=== PATIENT | female | born 1980 | race Caucasian/White ===

== ENCOUNTER 2017-10-21 10:27 | Outpatient (CLI) | payer BC, SELFPAY ==
[2017-10-21 10:32] VITALS: BP 104/67; PULSE 90; RESP 24; TEMP 36.3; O2SAT 100
[2017-10-21] MEDS: Midazolam 2 MG/2 ML VIAL IVP ×2 (11:16→11:25)
[2017-10-21] MEDS: Lactated Ringers 1,000 ML 80 ML IV (11:22)
[2017-10-21 11:26] VITALS: BP 97/71; PULSE 93; RESP 24; O2SAT 100
[2017-10-21] MEDS: Lidocaine 2% Pres-Free 2 ML VIAL IJ (11:35)
--- NOTE | 2017-10-21 11:35 | DI.REPORT_ITS ---
SYMPTOM/DIAGNOSIS: SACROILIAC JOINT DYSFUNCTION PAIN CLINIC: Fluoroscopy Time: 38.2s Fluoroscopy was utilized by Dr. Krishna during the performance of a sacroiliac joint injection. Please refer to the procedure report for complete details.
[2017-10-21] MEDS: Omnipaque 240 MG/ML 50 ML BTL IJ (11:58)
[2017-10-21] MEDS: methylPREDNISolone ACETATE 80 MG/ML VIAL IJ (11:59)
--- NOTE | 2017-12-23 10:08 | PDOC.PAIN_ITS ---
Pain Clinic Procedure Note INTRA-ARTICULAR SI JOINT INJECTION Date of Service: 10/21/2017 Patient: Sanna Peterson Provider: Zaire Krishna DO, MPH COMMENTS: She has been previously evaluated in our clinic Ms. Peterson has been referred to the [facility] for intra-articular SI joint injection. Ms. Peetrson was interviewed and the medical record reviewed. There were no medical, pharmacologic, radiographic or other structural contraindications to attempting fluoroscopically guided intra-articular SI joint injection. Risks and expected side effects as well as potential benefit of the procedure were reviewed with Ms. Peterson, and her voiced concerns were addressed. The printed consent form was signed and witnessed. Standard time-out procedure was performed. Ms. Peterson was placed in the prone position on the fluoroscopy table and automated blood pressure cuff and pulse oximeter applied. The skin entry point for approaching the left sacroiliac joint was identified under the most advantageous fluoroscopic view and marked. Following thorough Chlorhexadine preparation of the skin and draping and 1% lidocaine infiltration of the skin entry point and subcutaneous tissues, a 22 gauge spinal needle was placed under fluoroscopic guidance into the LEFT sacroiliac joint. Intra-articular placement was confirmed by a clear arthrogram resulting from the injection of 0.25ml Omnipaque 240. 1 ml 1% Lidocaine and 80 mg Depomedrol was injected intra- articularily with an initial reproduction of a significant component of the usual pain. The needle was flushed with 0.5 cc of 1% Lidocaine and removed without difficulty. (49 cc of Omnipaque was wasted) Ms. Peterson's vital signs were stable throughout the procedure and were as recorded in the docflowsheet by the nursing staff. If given, dosages of intravenous drugs for anxiolysis and analgesia were documented in MAR. Follow up plans and appointments were discussed with the Ms. Peterson. Post procedure instruction was given as documented in nursing documentation and having met discharge criteria, She was discharged from the [facility]. COMMENTS: No complications. F/U with our office as needed. I personally performed this entire procedure. Zaire Krishna DO, MPH [facility]-subspecialty board certification in Pain Medicine Attending Physician-Pain Management CC: PCP
--- NOTE | 2017-12-23 15:01 | PDOC.PAIN ---
Pain Clinic Procedure Note INTRA-ARTICULAR SI JOINT INJECTION Date of Service: 10/21/2017 Patient: Sanna Peterson Provider: Zaire Krishna DO, MPH COMMENTS: She has been previously evaluated in our clinic Ms. Peterson has been referred to the [facility] for intra-articular SI joint injection. Ms. Peterson was interviewed and the medical record reviewed. There were no medical, pharmacologic, radiographic or other structural contraindications to attempting fluoroscopically guided intra-articular SI joint injection. Risks and expected side effects as well as potential benefit of the procedure were reviewed with Ms. Peterson, and her voiced concerns were addressed. The printed consent form was signed and witnessed. Standard time-out procedure was performed. Ms. Peterson was placed in the prone position on the fluoroscopy table and automated blood pressure cuff and pulse oximeter applied. The skin entry point for approaching the left sacroiliac joint was identified under the most advantageous fluoroscopic view and marked. Following thorough Chlorhexadine preparation of the skin and draping and 1% lidocaine infiltration of the skin entry point and subcutaneous tissues, a 22 gauge spinal needle was placed under fluoroscopic guidance into the LEFT sacroiliac joint. Intra-articular placement was confirmed by a clear arthrogram resulting from the injection of 0.25ml Omnipaque 240. 1 ml 1% Lidocaine and 80 mg Depomedrol was injected intra-articularily with an initial reproduction of a significant component of the usual pain. The needle was flushed with 0.5 cc of 1% Lidocaine and removed without difficulty. (49 cc of Omnipaque was wasted) Ms. Peterson's vital signs were stable throughout the procedure and were as recorded in the docflowsheet by the nursing staff. If given, dosages of intravenous drugs for anxiolysis and analgesia were documented in MAR. Follow up plans and appointments were discussed with the Ms. Peterson. Post procedure instruction was given as documented in nursing documentation and having met discharge criteria, She was discharged from the [facility]. COMMENTS: No complications. F/U with our office as needed. I personally performed this entire procedure. Zaire Krishna DO, MPH [facility]-subspecialty board certification in Pain Medicine Attending Physician-Pain Management CC: PCP
== END 2017-10-21 10:28 ==
PROVIDERS: PCP Internal Medicine; Visit Provider Preventive Medicine Occupational Medicine
DX: M54.5 Low back pain (principal); M53.3 Sacrococcygeal disorders, not elsewhere classified
CPT/HCPCS: 27096; 72200; J1040; J2250; Q9967

== ENCOUNTER 2017-12-23 12:25 | Outpatient (CLI) | payer BC, SELFPAY ==
--- NOTE | 2017-12-23 06:00 | DI.RAD_ITS ---
SYMPTOMS/DIAGNOSIS: FAILED BACK SYNDROME PAIN CLINIC: Fluoroscopy Time: 59 Fluoroscopy was utilized by Dr. Krishna during the performance of a left facet injection. Please refer to the procedure report for complete details.
[2017-12-23 12:36] VITALS: BP 102/74; PULSE 109; RESP 22; TEMP 37; O2SAT 99
--- NOTE | 2017-12-23 13:11 | PDOC.PAIN ---
Pain Clinic Procedure Note Current Active Problems Problem Status Onset Spondylosis of lumbar region without myelopathy or radiculopathy Acute INTRA-ARTICULAR FACET JOINT INJECTION AT LEFT L3-L4, L4-L5, AND L5-S1 ADRIENNE CLEARY has been referred to the [facility] for intra-articular lumbar facet joint injection. COMMENTS: I did review her evaluation by Blake Patient was interviewed and the medical record reviewed. There were no medical, pharmacologic, radiographic or other structural contraindications to attempting fluoroscopically guided intra-articular lumbar facet joint injection. Risks and expected side effects as well as potential benefit of the procedure were reviewed and voiced concerns addressed. The printed consent form was signed and witnessed. Standard time-out procedure was performed. Patient was placed in the prone position on the fluoroscopy table and automated blood pressure cuff and pulse oximeter applied. The skin entry point for approaching left L3-L4, L4-L5, and L5-C9mazgl joints was identified under the most advantageous fluoroscopic view and marked. Following thorough Chlorhexadine preparation of the skin and draping and 1% lidocaine infiltration of the skin entry point and subcutaneous tissues, a 25 gauge spinal needle was placed under fluoroscopic guidance into the left L3-L4, L4-L5, and L5-N4occws joints. Intra-articular placement was confirmed by a clear arthrogram resulting from the injection of 0.25ml Omnipaque 240. .5ml 1% lidocaine and 25mg Depomedrol were injected intra-articularily with an initial reproduction of a significant component of the usual pain. Vital signs were stable throughout the procedure and were as recorded in the docflowsheet by the nursing staff. If given, dosages of intravenous drugs for anxiolysis and analgesia were documented in MAR. Follow up plans and appointments were discussed. Post procedure instruction was given as documented in nursing documentation and having met discharge criteria,was discharged from the [facility]. COMMENTS: This procedure can be completed up to 3 times every 12 months as needed. Zaire Krishna DO, MPH [facility] - Subspecialty Board Certified in Pain Medicine CC: Katherine Castillo
--- NOTE | 2017-12-23 13:15 | PDOC.PAIN_ITS ---
Pain Clinic Procedure Note Current Active Problems Problem Status Onset Spondylosis of lumbar region without myelopathy or radiculopathy Acute INTRA-ARTICULAR FACET JOINT INJECTION AT LEFT L3-L4, L4-L5, AND L5-S1 ADRIENNE CLEARY has been referred to the [facility] for intra- articular lumbar facet joint injection. COMMENTS: I did review her evaluation by Blake Patient was interviewed and the medical record reviewed. There were no medical , pharmacologic, radiographic or other structural contraindications to attempting fluoroscopically guided intra-articular lumbar facet joint injection. Risks and expected side effects as well as potential benefit of the procedure were reviewed and voiced concerns addressed. The printed consent form was signed and witnessed. Standard time-out procedure was performed. Patient was placed in the prone position on the fluoroscopy table and automated blood pressure cuff and pulse oximeter applied. The skin entry point for approaching left L3-L4, L4-L5, and L5-J1jgwst joints was identified under the most advantageous fluoroscopic view and marked. Following thorough Chlorhexadine preparation of the skin and draping and 1% lidocaine infiltration of the skin entry point and subcutaneous tissues, a 25 gauge spinal needle was placed under fluoroscopic guidance into the left L3-L4, L4-L5, and L5-R2wynto joints. Intra-articular placement was confirmed by a clear arthrogram resulting from the injection of 0.25ml Omnipaque 240. .5ml 1% lidocaine and 25mg Depomedrol were injected intra-articularily with an initial reproduction of a significant component of the usual pain. Vital signs were stable throughout the procedure and were as recorded in the docflowsheet by the nursing staff. If given, dosages of intravenous drugs for anxiolysis and analgesia were documented in MAR. Follow up plans and appointments were discussed. Post procedure instruction was given as documented in nursing documentation and having met discharge criteria,was discharged from the [facility]. COMMENTS: This procedure can be completed up to 3 times every 12 months as needed. Zaire Krishna DO, MPH [facility] - Subspecialty Board Certified in Pain Medicine CC: Katherine Castillo
[2017-12-23 13:22] VITALS: BP 97/60; PULSE 100; RESP 19; O2SAT 100
[2017-12-23] MEDS: Omnipaque 240 MG/ML 50 ML BTL IJ (13:24)
[2017-12-23] MEDS: methylPREDNISolone ACETATE 80 MG/ML VIAL IM (13:24)
== END 2017-12-23 12:45 ==
PROVIDERS: PCP Internal Medicine; Visit Provider Preventive Medicine Occupational Medicine
DX: M47.816 Spondylosis without myelopathy or radiculopathy, lumbar region (principal)
CPT/HCPCS: 64493; 64494; 64495; 72100; J1040; Q9967

== ENCOUNTER 2018-05-24 14:19 | Outpatient (CLI) | payer BC, SELFPAY ==
--- NOTE | 2018-05-24 06:00 | DI.RAD_ITS ---
SYMPTOM/DIAGNOSIS: SACROILIAC JOINT DYSFUNCTION, SI JOINT INJECTION C-ARM: Fluoroscopy Time: 36.8 seconds Fluoroscopy was provided for guidance with lumbar spine pain clinic injection. Please see procedure note for details.
[2018-05-24 14:26] VITALS: BP 106/74; PULSE 78; RESP 18; TEMP 36.5; O2SAT 97
--- NOTE | 2018-05-24 14:52 | PDOC.PAIN_ITS ---
Pain Clinic Procedure Note Current Active Problems Problem Status Onset Spondylosis of lumbar region without myelopathy or radiculopathy Acute INTRA-ARTICULAR FACET JOINT INJECTION ADRIENNE CLEARY has been referred to the [facility] for intra- articular lumbar facet joint injection. COMMENTS: She obtained 4 months of pain relief with the last left L3-L4, L4-L5 and L5-S1 facet joint intra-articular injections. 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 Patient was interviewed and the medical record reviewed. There were no medical, pharmacologic, radiographic or other structural contraindications to attempting fluoroscopically guided intra-articular lumbar facet joint injection. Risks and expected side effects as well as potential benefit of the procedure were reviewed and voiced concerns addressed. The printed consent form was signed and witnessed. Standard time-out procedure was performed. Patient was placed in the prone position on the fluoroscopy table and automated blood pressure cuff and pulse oximeter applied. The skin entry point for approaching left facet joints at L3-L4, L4-L5 and L5-S1 was identified under the most advantageous fluoroscopic view and marked. Following thorough Chlorhexadine preparation of the skin and draping and 1% lidocaine infiltration of the skin entry point and subcutaneous tissues, a 22 gauge spinal needle was placed under fluoroscopic guidance into left L3-L4, L4-L5 and L5-S1 facet joints. Intra-articular placement was confirmed by a clear arthrogram resulting from the injection of 0.25ml Omnipaque 240. .5ml 1% lidocaine and 1/3 cc of Depomedrol (80 mg/cc) were injected intra-articularily with an initial reproduction of a significant component of the usual pain. Vital signs were stable throughout the procedure and were as recorded in the do cflowsheet by the nursing staff. If given, dosages of intravenous drugs for anxiolysis and analgesia were documented in MAR. Follow up plans and appointments were discussed. Post procedure instruction was given as documented in nursing documentation and having met discharge criteria,was discharged from the [facility]. COMMENTS: This procedure can be completed up to 3 times per 12 months if it is found to be effective. CC: Katherine Castillo
[2018-05-24] MEDS: Omnipaque 240 MG/ML 50 ML BTL IJ (15:01)
[2018-05-24] MEDS: methylPREDNISolone ACETATE 80 MG/ML VIAL IJ (15:04)
[2018-05-24 15:09] VITALS: BP 111/74; PULSE 94; RESP 17; O2SAT 100
== END 2018-05-24 14:39 ==
PROVIDERS: PCP Internal Medicine; Visit Provider Preventive Medicine Occupational Medicine
DX: M47.816 Spondylosis without myelopathy or radiculopathy, lumbar region (principal)
CPT/HCPCS: 64493; 64494; 64495; 72200; J1040; Q9967

== ENCOUNTER 2018-10-13 10:00 | Outpatient (CLI) | payer BC, SELFPAY ==
--- NOTE | 2018-10-13 06:00 | DI.RAD_ITS ---
SYMPTOM/DIAGNOSIS: LUMBAR RADICULOPATHY C-ARM FLUOROSCOPY LUMBAR SPINE: Fluoroscopy Time: 44.1 sec Fluoroscopy was provided for guidance with lumbar spine Pain Clinic injection. Please see procedure note for details.
[2018-10-13 10:39] VITALS: BP 111/70; PULSE 94; RESP 16; TEMP 36.6; O2SAT 99
[2018-10-13 11:02] VITALS: BP 142/62; PULSE 87; RESP 14; O2SAT 100
[2018-10-13] MEDS: Omnipaque 240 MG/ML 50 ML BTL IJ (11:16)
[2018-10-13] MEDS: Lidocaine 2% Pres-Free 5 ML VIAL IJ (11:17)
[2018-10-13] MEDS: methylPREDNISolone ACETATE 80 MG/ML VIAL IM (11:18)
--- NOTE | 2018-10-13 13:16 | PDOC.PAIN ---
Pain Clinic Procedure Note Current Active Problems Problem Status Onset Spondylosis of lumbar region without myelopathy or radiculopathy INTRA-ARTICULAR FACET JOINT INJECTION ADRIENNE CLEARY has been referred to the [facility] for intra-articular lumbar facet joint injection. COMMENTS: She has had this procedure numerous times in the past with good results. 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 Patient was interviewed and the medical record reviewed. There were no medical, pharmacologic, radiographic or other structural contraindications to attempting fluoroscopically guided intra-articular lumbar facet joint injection. Risks and expected side effects as well as potential benefit of the procedure were reviewed and voiced concerns addressed. The printed consent form was signed and witnessed. Standard time-out procedure was performed. Patient was placed in the prone position on the fluoroscopy table and automated blood pressure cuff and pulse oximeter applied. The skin entry point for approaching left L3-L4, L4-L5, and L5-S1 facet joints at L was identified under the most advantageous fluoroscopic view and marked. Following thorough Chlorhexadine preparation of the skin and draping and 1% lidocaine infiltration of the skin entry point and subcutaneous tissues, a 22 gauge 3.5 spinal needle was placed under fluoroscopic guidance into left L3-L4, L4-L5, and L5-S1 facet joint. Intra-articular placement was confirmed by a clear arthrogram resulting from the injection of 0.25ml Omnipaque 240. .5ml 1% lidocaine and 25 mg Depomedrol were injected intra-articularily at each joint with an initial reproduction of a significant component of the usual pain. Vital signs were stable throughout the procedure and were as recorded in the docflowsheet by the nursing staff. If given, dosages of intravenous drugs for anxiolysis and analgesia were documented in MAR. Follow up plans and appointments were discussed. Post procedure instruction was given as documented in nursing documentation and having met discharge criteria,was discharged from the [facility]. COMMENTS: This procedure can be completed up to 3 times per 12 months if it continues to be effective. CC: Katherine Castillo
== END 2018-10-13 10:20 ==
PROVIDERS: PCP Internal Medicine; Visit Provider Preventive Medicine Occupational Medicine
DX: M47.816 Spondylosis without myelopathy or radiculopathy, lumbar region (principal)
CPT/HCPCS: 64493; 64494; 64495; 72100; J1040; Q9967

== ENCOUNTER 2019-02-07 08:22 | Outpatient (CLI) | payer BC, SELFPAY ==
[2019-02-07 09:12] VITALS: BP 108/69; PULSE 88; RESP 18; TEMP 36.9; O2SAT 100
--- NOTE | 2019-02-07 09:21 | PDOC.PAIN ---
Pain Clinic Procedure Note Procedure Note Procedure Note: Pain Clinic Procedure Note Pre-operative diagnosis: Spondylosis of lumbar region without myelopathy or radiculopathy post-operative diagnosis: same as above Procedure scheduled: left SI joint injection Actual procedure performed: left lumbar intra-articular facet injections INTRA-ARTICULAR FACET JOINT INJECTION ADRIENNE CLEARY has been referred to the [facility] for intra-articular lumbar facet joint injection. COMMENTS: She has had this procedure numerous times in the past with good results. 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 the procedure was booked as a left SI joint injection by mistake, again, confirmed with prior procedure notes and with patient, she has consistently received good pain relief from intra-articular lumbar injection, she has not had pain relief from left SI joint injection. procedure and consent changed appropriately. Patient was interviewed and the medical record reviewed. There were no medical, pharmacologic, radiographic or other structural contraindications to attempting fluoroscopically guided intra-articular lumbar facet joint injection. Risks and expected side effects as well as potential benefit of the procedure were reviewed and voiced concerns addressed. The printed consent form was signed and witnessed. Standard time-out procedure was performed. Patient was placed in the prone position on the fluoroscopy table and automated blood pressure cuff and pulse oximeter applied. The skin entry point for approaching left L3-L4, L4-L5, and L5-S1 facet joints at L was identified under the most advantageous fluoroscopic view and marked. Following thorough Chlorhexadine preparation of the skin and draping and 1% lidocaine infiltration of the skin entry point and subcutaneous tissues, a 22 gauge 3.5 spinal needle was placed under fluoroscopic guidance into left L3-L4, L4-L5, and L5-S1 facet joint. Intra-articular placement was confirmed by a clear arthrogram resulting from the injection of 0.25ml Omnipaque 240. .5ml 1% lidocaine and 25 mg Depomedrol were injected intra-articularily at each joint with an initial reproduction of a significant component of the usual pain. Vital signs were stable throughout the procedure and were as recorded in the docflowsheet by the nursing staff. If given, dosages of intravenous drugs for anxiolysis and analgesia were documented in MAR. of note, given patient's anxiety, she received 2mg of IV versed today. Follow up plans and appointments were discussed. Post procedure instruction was given as documented in nursing documentation and having met discharge criteria,was discharged from the [facility]. COMMENTS: This procedure can be completed up to 3 times per 12 months if it continues to be effective. Please make sure to scheduled intra-articular lumbar facet injections for future. Vitaliy Salmeron MD Pain Management
[2019-02-07] MEDS: Lactated Ringers 1,000 ML 80 ML IV (09:45)
[2019-02-07] MEDS: Midazolam 2 MG/2 ML VIAL IVP ×2 (09:45→09:58)
[2019-02-07 10:03] VITALS: BP 95/55; PULSE 90; RESP 13; O2SAT 100
[2019-02-07 10:06] VITALS: BP 118/73; PULSE 89; RESP 17; O2SAT 100
--- NOTE | 2019-02-07 10:06 | DI.RAD_ITS ---
EXAM: XR PAIN CLINIC SACRIOILIAC 2V CLINICAL HISTORY: Dx: Sacroiliac Joint Dysfunction. TECHNIQUE: Fluoroscopy was provided for the referring physician for guidance with performing injecti on procedure. COMPARISON: No exams were available for comparison FINDINGS: Please see procedure note for details. FLUORO TIME: 44.7 seconds
[2019-02-07] MEDS: Omnipaque 240 MG/ML 50 ML BTL IJ (10:21)
[2019-02-07] MEDS: methylPREDNISolone ACETATE 80 MG/ML VIAL IJ (10:21)
== END 2019-02-07 08:42 ==
PROVIDERS: PCP Internal Medicine; Visit Provider Internal Medicine
DX: M47.816 Spondylosis without myelopathy or radiculopathy, lumbar region (principal)
CPT/HCPCS: 64493; 64494; 64495; 72200; J1040; J2250; Q9967

== ENCOUNTER 2019-08-17 08:03 | Outpatient (CLI) | payer BC, SELFPAY ==
[2019-08-17 08:10] VITALS: BP 86/55; PULSE 93; RESP 20; TEMP 36.1; O2SAT 99
--- NOTE | 2019-08-17 08:57 | PDOC.PAIN_ITS ---
Pain Clinic Procedure Note Procedure Note Procedure Note: INTRA-ARTICULAR FACET JOINT INJECTION ADRIENNE CLEARY has been referred to the [facility] for intra- articular lumbar facet joint injection. COMMENTS: She has had this procedure several times in the past with excellent re sults. Her last one was on 02/07/19 and gave her 4-5 months of relief. DX: Lumbosacral spondylosis without myelopathy Patient was interviewed and the medical record reviewed. There were no medical, pharmacologic, radiographic or other structural contraindications to attempting fluoroscopically guided intra-articular lumbar facet joint injection. Risks and expected side effects as well as potential benefit of the procedure were reviewed and voiced concerns addressed. The printed consent form was signed and witnessed. Standard time-out procedure was performed. Patient was placed in the prone position on the fluoroscopy table and automated blood pressure cuff and pulse oximeter applied. The skin entry point for approaching left L3-L4, L4-L5 and L5-S1 facet joints was identified under the most advantageous fluoroscopic view and marked. Following thorough Chlorhexadine preparation of the skin and draping and 1% lidocaine infiltration of the skin entry point and subcutaneous tissues, a 22 gauge spinal needle was placed under fluoroscopic guidance into left L3-L4, L4-L5 and L5-S9aarck joints. Intra-articular placement was confirmed by a clear arthrogram resulting from the injection of 0.25ml Omnipaque 240. .5ml 1% lidocaine and 20mg Depomedrol were injected intra-articularily with an initial reproduction of a significant component of the usual pain. Vital signs were stable throughout the procedure and were as recorded in the docflowsheet by the nursing staff. If given, dosages of intravenous drugs for anxiolysis and analgesia were documented in MAR. Follow up plans and appointments were discussed. Post procedure instruction was given as documented in nursing documentation and having met discharge criteria,was discharged from the [facility]. COMMENTS: This procedure can be completed up to 3 times per 12 months as needed if it is helpful. Also, she has significant underlying anxiety with this p rocedure. It would be good to add a little extra time for her to settle down in a calm space after the procedure in the future. CC: Katherine Castillo
--- NOTE | 2019-08-17 08:59 | DI.RAD_ITS ---
EXAM: XR PAIN CLINIC LUMBAR SP 2V CLINICAL HISTORY: Dx:Lumbar Spondylosis,FACET JOINT INJECTION TECHNIQUE: Fluoroscopy was provided for the referring physician for guidance with performing injecti on procedure. COMPARISON: No exams were available for comparison FINDINGS: Please see procedure note for details. FLUORO TIME: 40.1 seconds RADIATION DOSE DELIVERED:
[2019-08-17 09:19] VITALS: BP 112/72; PULSE 102; RESP 22; O2SAT 100
[2019-08-17] MEDS: Lidocaine 2% Pres-Free 5 ML VIAL (09:21)
[2019-08-17] MEDS: methylPREDNISolone ACETATE 40 MG/ML VIAL IJ (09:22)
[2019-08-17] MEDS: Omnipaque 240 MG/ML 50 ML BTL (09:22)
== END 2019-08-17 08:23 ==
PROVIDERS: PCP Internal Medicine; Visit Provider Preventive Medicine Occupational Medicine
DX: M47.817 Spondylosis without myelopathy or radiculopathy, lumbosacral region (principal)
CPT/HCPCS: 64493; 64494; 64495; 72100; J1030; Q9967

== ENCOUNTER 2019-12-21 08:43 | Outpatient (CLI) | payer BC, SELFPAY ==
[2019-12-21 09:30] VITALS: BP 105/56; PULSE 90; RESP 17; TEMP 37.1; O2SAT 100
[2019-12-21] MEDS: Omnipaque 240 MG/ML 50 ML BTL IJ (10:22)
[2019-12-21] MEDS: methylPREDNISolone ACETATE 80 MG/ML VIAL IJ (10:22)
--- NOTE | 2019-12-21 10:22 | PDOC.PAIN_ITS ---
Pain Clinic Procedure Note Procedure Note Procedure Note: INTRA-ARTICULAR FACET JOINT INJECTION ADRIENNE CLEARY has been referred to the [facility] for intra- articular lumbar facet joint injection. COMMENTS: She has had this procedure many times with great relief for 4-5 months at a time. This relief has allowed her to keep working. DX: Lumbosacral spondylosis without myelopathy Patient was interviewed and the medical record reviewed. There were no medical, pharmacologic, radiographic or other structural contraindications to attempting fluoroscopically guided intra-articular lumbar facet joint injection. Risks and expected side effects as well as potential benefit of the procedure were reviewed and voiced concerns addressed. The printed consent form was signed and witnessed. Standard time-out procedure was performed. Patient was placed in the prone position on the fluoroscopy table and automated blood pressure cuff and pulse oximeter applied. The skin entry point for approaching right facet joints at L3-L4, L4-L5, and L5-S1 was identified under the most advantageous fluoroscopic view and marked. Following thorough Chlorhexadine preparation of the skin and draping and 1% lidocaine infiltration of the skin entry point and subcutaneous tissues, a 22 gauge spinal needle was placed under fluoroscopic guidance into right L3-L4, L4-L5 and L5-S1 facet joints. Intra-articular placement was confirmed by a clear arthrogram resulting from the injection of 0.25ml Omnipaque 240. .5ml 1% lidocaine and 1/3 cc of Depomedrol (80 mg/cc) were injected intra-articularily with an initial reproduction of a significant component of the usual pain. The needles were flushed with 1 cc of 1% Lidocaine and removed without difficulty. Vital signs were stable throughout the procedure and were as recorded in the docflowsheet by the nursing staff. If given, dosages of intravenous drugs for anxiolysis and analgesia were documented in MAR. Follow up plans and appointments were discussed. Post procedure instruction was given as documented in nursing documentation and having met discharge criteria,was discharged from the [facility]. COMMENTS: This procedure can be completed up to 3 times per 12 months if it continues to be effective. Zaire Krishna DO, MPH Pain Management CC: Katherine Castillo
[2019-12-21 10:23] VITALS: BP 104/57; PULSE 99; RESP 15; O2SAT 100
--- NOTE | 2019-12-21 10:24 | DI.RAD_ITS ---
EXAM: XR PAIN CLINIC LUMBAR SP 2V CLINICAL HISTORY: Dx: Lumbar Spondylosis, facet joint injection TECHNIQUE: Fluoroscopy was provided for the referring physician for guidance with performing injecti on procedure. COMPARISON: No exams were available for comparison FINDINGS: Please see procedure note for details. Fluoro time: 44.2 seconds RADIATION DOSE DELIVERED:
== END 2019-12-21 09:03 ==
PROVIDERS: PCP Internal Medicine; Visit Provider Preventive Medicine Occupational Medicine
DX: M47.816 Spondylosis without myelopathy or radiculopathy, lumbar region (principal)
CPT/HCPCS: 64493; 64494; 64495; 72100; J1040; Q9967

== ENCOUNTER 2020-05-14 10:47 | Outpatient (CLI) | payer BC, SELFPAY ==
[2020-05-14 10:57] VITALS: BP 108/62; PULSE 105; RESP 20; TEMP 37.5; O2SAT 100
--- NOTE | 2020-05-14 11:31 | DI.RAD_ITS ---
EXAM: XR PAIN CLINIC LUMBAR SP 2V CLINICAL HISTORY: DX: Lumbar Spondylosis. TECHNIQUE: Fluoroscopy was provided for the referring physician for guidance with performing injecti on procedure. COMPARISON: No exams were available for comparison FINDINGS: Please see procedure note for details. RADIATION DOSE DELIVERED: 45.6 seconds fluoro time. 4.46 mGy radiation dose.
[2020-05-14 11:33] VITALS: BP 102/60; PULSE 96; RESP 20; O2SAT 100
[2020-05-14] MEDS: methylPREDNISolone ACETATE 80 MG/ML VIAL IJ (11:48)
[2020-05-14] MEDS: Omnipaque 240 MG/ML 50 ML BTL IJ (11:48)
[2020-05-14] MEDS: Lidocaine 2% Pres-Free 5 ML VIAL IJ (11:49)
--- NOTE | 2020-05-14 12:50 | PDOC.PAIN_ITS ---
Pain Clinic Procedure Note Procedure Note Procedure Note: Date of service: May 14, 2020 INTRA-ARTICULAR FACET JOINT INJECTION ADRIENNE CLEARY has been referred to the [facility] for intra- articular lumbar facet joint injection. COMMENTS: She has had this procedure several times over the past years. 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 Dx: Lumbosacral spondylosis without myelopathy Patient was interviewed and the medical record reviewed. There were no medical, pharmacologic, radiographic or other structural contraindications to attempting fluoroscopically guided intra-articular lumbar facet joint injection. Risks and expected side effects as well as potential benefit of the procedure were reviewed and voiced concerns addressed. The printed consent form was signed and witnessed. Standard time-out procedure was performed. Patient was placed in the prone position on the fluoroscopy table and automated blood pressure cuff and pulse oximeter applied. The skin entry point for susy roaching left facet joints at L3-L4, L4-L5 and L5-S1 was identified under the most advantageous fluoroscopic view and marked. Following thorough Chlorhexadine preparation of the skin and draping and 1% lidocaine infiltration of the skin entry point and subcutaneous tissues, a 22 gauge spinal needle was placed under fluoroscopic guidance into left L3-L4, L4-L5 and [id number] joints. Intra-articular placement was confirmed by a clear arthrogram resulting from the injection of 0.25ml Omnipaque 240. .5ml 1% lidocaine and 20mg Depomedrol were injected intra-articularily with an initial reproduction of a significant component of the usual pain at each level. Vital signs were stable throughout the procedure and were as recorded in the docflowsheet by the nursing staff. If given, dosages of intravenous drugs for anxiolysis and analgesia were documented in MAR. Follow up plans and appointments were discussed. Post procedure instruction was given as documented in nursing documentation and having met discharge criteria,was discharged from the [facility]. COMMENTS: This procedure can be completed up to 3 times per 12 months if it is found to be helpful. Zaire Krishna DO, MPH Pain Management CC: Katherine Castillo
== END 2020-05-14 10:48 | disposition home or self-care (01) ==
PROVIDERS: PCP Internal Medicine; Visit Provider Preventive Medicine Occupational Medicine
DX: M47.817 Spondylosis without myelopathy or radiculopathy, lumbosacral region (principal)
CPT/HCPCS: 64493; 64494; 64495; 72100; J1040; Q9967

== ENCOUNTER 2020-09-19 10:52 | Outpatient (CLI) | payer BC, SELFPAY ==
[2020-09-19 11:00] VITALS: BP 95/60; PULSE 82; RESP 17; TEMP 37; O2SAT 100
--- NOTE | 2020-09-19 11:48 | DI.RAD_ITS ---
Exam(s) XR PAIN CLINIC LUMBAR SP 2V EXAM: XR PAIN CLINIC LUMBAR SP 2V CLINICAL HISTORY: Dx: Lumbar Radiculopathy TECHNIQUE: 2D and realtime digital imaging was performed. Radiologist not present. CONTRAST MATERIAL: None. COMPARISON: No exams were available for comparison FINDINGS: Fluoroscopy was provided for pain management therapy. Please refer to the procedure report for compl ete details. There are no submitted images. Cumulative dose: Ka,r=3.26 mGy IMPRESSION: RADIATION DOSE DELIVERED:
--- NOTE | 2020-09-19 11:50 | PDOC.PAIN_ITS ---
Pain Clinic Procedure Note Procedure Note Procedure Note: INTRA-ARTICULAR FACET JOINT INJECTION ADRIENNE CLEARY has been referred to the [facility] for intra- articular lumbar facet joint injection. 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 Pre-procedure pain VAS was 6/10. Dx: Lumbosacral spondylosis without myelopathy Patient was interviewed and the medical record reviewed. There were no medical, pharmacologic, radiographic or other structural contraindications to attempting fluoroscopically guided intra-articular lumbar facet joint injection. Risks and expected side effects as well as potential benefit of the procedure were reviewed and voiced concerns addressed. The printed consent form was signed and witnessed. Standard time-out procedure was performed. Patient was placed in the prone position on the fluoroscopy table and automated blood pressure cuff and pulse oximeter applied. The skin entry point for approaching left facet joints at L3-L4, L4-L5, and L5-S1 were identified under the most advantageous fluoroscopic view and marked. Following thorough Chlorhexadine preparation of the skin and draping and 1% lidocaine infiltration of the skin entry point and subcutaneous tissues, a 22 gauge spinal needle was placed under fluoroscopic guidance into left L3-L4, L4-L5 and L5-S1 facet joints. Intra-articular placement was confirmed by a clear arthrogram resulting from the injection of 0.25ml Omnipaque 240. 0.5ml 1% lidocaine and 0.33 cc of Depomedrol (80 mg/cc) were injected intra-articularily with an initial reproduction of a significant component of the usual pain into each joint. The needled were flushed with 1% Lidocaine and removed without difficulty. Vital signs were stable throughout the procedure and were as recorded in the docflowsheet by the nursing staff. If given, dosages of intravenous drugs for anxiolysis and analgesia were documented in MAR. Follow up plans and appointments were discussed. Post procedure instruction was given as documented in nursing documentation and having met discharge criteria,was discharged from the [facility]. COMMENTS: Post-procedure pain VAS was 0/10. Zaire Krishna DO, MPH Pain Management CC: Katherine Castillo
[2020-09-19] MEDS: Omnipaque 240 MG/ML 50 ML BTL IJ (12:03)
[2020-09-19] MEDS: methylPREDNISolone ACETATE 80 MG/ML VIAL IJ (12:04)
[2020-09-19] MEDS: Lidocaine 2% Pres-Free 5 ML VIAL IJ (12:04)
[2020-09-19 12:05] VITALS: BP 114/66; PULSE 75; RESP 20; O2SAT 100
== END 2020-09-19 10:53 | disposition home or self-care (01) ==
LOC: PC 10:52
PROVIDERS: PCP Internal Medicine; Visit Provider Preventive Medicine Occupational Medicine
DX: M47.817 Spondylosis without myelopathy or radiculopathy, lumbosacral region (principal)
CPT/HCPCS: 64493; 64494; 64495; 72100; J1040; Q9967

== ENCOUNTER 2021-02-26 08:45 | Outpatient (CLI) | payer BC, SELFPAY ==
--- NOTE | 2021-02-26 06:00 | DI.RAD_ITS ---
Exam(s) XR PAIN CLINIC LUMBAR SP 2V EXAM: XR PAIN CLINIC LUMBAR SP 2V CLINICAL HISTORY: DX: Lumbar Spondylosis TECHNIQUE: 2D and realtime digital imaging was performed. CONTRAST MATERIAL: Refer to procedure report. COMPARISON: No exams were available for comparison FINDINGS: Fluoroscopy was provided for Dr. Krishna during the performance of a lumbar facet injection. Please re maximino to the procedure report for complete details. Ka,r=5.42 mGy IMPRESSION:
[2021-02-26 09:00] VITALS: BP 99/66; PULSE 103; RESP 20; TEMP 37.1; O2SAT 98
--- NOTE | 2021-02-26 09:32 | PDOC.PAIN ---
Pain Clinic Procedure Note Procedure Note Procedure Note: INTRA-ARTICULAR FACET JOINT INJECTION ADRIENNE CLEARY has been referred to the [facility] for intra-articular lumbar facet joint injection. COMMENTS: She has done very well with this procedure over the years. This procedure allows her to continue working. Her last procedure was 09/19/2020. Her pre-procedure pain VAS = 5/10. DX: Lumbosacral spondylosis without myelopathy Patient was interviewed and the medical record reviewed. There were no medical, pharmacologic, radiographic or other structural contraindications to attempting fluoroscopically guided intra-articular lumbar facet joint injection. Risks and expected side effects as well as potential benefit of the procedure were reviewed and voiced concerns addressed. The printed consent form was signed and witnessed. Standard time-out procedure was performed. Patient was placed in the prone position on the fluoroscopy table and automated blood pressure cuff and pulse oximeter applied. The skin entry point for approaching Left facet joints at L3-L4, L4-L5, and L5-S1 was identified under the most advantageous fluoroscopic view and marked. Following thorough Chlorhexadine preparation of the skin and draping and 1% lidocaine infiltration of the skin entry point and subcutaneous tissues, a 22 gauge 3.5 spinal needle was placed under fluoroscopic guidance into left L3-L4, L4-L5, L5-S1 facet joints. Intra-articular placement was confirmed by a clear arthrogram resulting from the injection of 0.25ml Omnipaque 240. 2/3 cc of Depomedrol (40 mg/cc) was injected intra-articularily into each joint with an initial reproduction of a significant component of the usual pain. This was followed by 1/2 cc of 2% Lidocaine. The needles were then removed without difficulty. Vital signs were stable throughout the procedure and were as recorded in the docflowsheet by the nursing staff. If given, dosages of intravenous drugs for anxiolysis and analgesia were documented in MAR. Follow up plans and appointments were discussed. Post procedure instruction was given as documented in nursing documentation and having met discharge criteria,was discharged from the [facility] Management Center. COMMENTS: Post-procedure pain VAS was 2/10. Zaire Krishna DO, MPH [facility]-Pain Management CC: Katherine Castillo
[2021-02-26 09:37] VITALS: BP 101/73; PULSE 90; RESP 12; O2SAT 100
[2021-02-26] MEDS: methylPREDNISolone ACETATE 40 MG/ML VIAL (09:39)
[2021-02-26] MEDS: Lidocaine 2% Pres-Free 5 ML VIAL IJ (09:39)
[2021-02-26] MEDS: Omnipaque 240 MG/ML 50 ML BTL IJ (09:39)
== END 2021-02-26 08:46 | disposition home or self-care (01) ==
PROVIDERS: PCP Internal Medicine; Visit Provider Preventive Medicine Occupational Medicine
DX: M47.817 Spondylosis without myelopathy or radiculopathy, lumbosacral region (principal)
CPT/HCPCS: 64493; 64494; 64495; 72100; J1030; Q9967

== ENCOUNTER 2021-07-01 10:52 | Outpatient (CLI) | payer BC, SELFPAY ==
--- NOTE | 2021-07-01 06:00 | DI.RAD_ITS ---
Exam(s) XR PAIN CLINIC LUMBAR SP 2V EXAM: XR PAIN CLINIC LUMBAR SP 2V CLINICAL HISTORY: Dx: Lumbar Radiculopathy TECHNIQUE: 2D and realtime digital imaging was performed. CONTRAST MATERIAL: Refer to procedure report. COMPARISON: No exams were available for comparison FINDINGS: Fluoroscopy was provided for Dr. Krishna during the performance of a lumbosacral facet injection.. Ple ase refer to the procedure report for complete details. Ka,r=5.01 mGy IMPRESSION:
[2021-07-01 11:01] VITALS: BP 99/68; PULSE 85; RESP 20; TEMP 37.1; O2SAT 97
--- NOTE | 2021-07-01 11:37 | PDOC.PAIN ---
Pain Clinic Procedure Note Procedure Note Procedure Note: INTRA-ARTICULAR LUMBAR FACET JOINT INJECTION ADRIENNE CLEARY has been referred to the [facility] for intra-articular lumbar facet joint injection. COMMENTS: She has had this procedure many times over the years. It is helping her to keep working and be able to be active with her family. Pre-procedure pain VAS was 6/10. Dx: Lumbosacral spondylosis without myelopathy. Patient was interviewed and the medical record reviewed. There were no medical, pharmacologic, radiographic or other structural contraindications to attempting fluoroscopically guided intra-articular lumbar facet joint injection. Risks and expected side effects as well as potential benefit of the procedure were reviewed and voiced concerns addressed. The printed consent form was signed and witnessed. Standard time-out procedure was performed. Patient was placed in the prone position on the fluoroscopy table and automated blood pressure cuff and pulse oximeter applied. The skin entry point for approaching left L3-L4, L4-L5, and L5-S1 facet joints were identified under the most advantageous fluoroscopic view and marked. Following thorough Chlorhexadine preparation of the skin and draping and 1% lidocaine infiltration of the skin entry point and subcutaneous tissues, a 22 gauge 3.5 spinal needle was placed under fluoroscopic guidance into left L3-L4, L4-L5, and L5-S1 facet joints. Intra-articular placement was confirmed by a clear arthrogram resulting from the injection of 0.25ml Omnipaque 240. I next injected and 1/3 cc of Depomedrol (80 mg/cc) followed by 1 ml of 2% lidocaine intra-articularily with an initial reproduction of a significant component of the usual pain. The needles were removed without difficulty. Vital signs were stable throughout the procedure and were as recorded in the docflowsheet by the nursing staff. If given, dosages of intravenous drugs for anxiolysis and analgesia were documented in MAR. Follow up plans and appointments were discussed. Post procedure instruction was given as documented in nursing documentation and having met discharge criteria,was discharged from the Pain Management Center. COMMENTS: Post-procedure pain VAS was 0/10. Zaire Krihsna DO, MPH [facility]-Pain Management [facility]-Center for Pain Management CC: Katherine Castillo
[2021-07-01 11:44] VITALS: BP 110/61; PULSE 79; RESP 15; O2SAT 100
[2021-07-01] MEDS: Lidocaine 2% Pres-Free 5 ML VIAL IJ (11:51)
[2021-07-01] MEDS: methylPREDNISolone ACETATE 80 MG/ML VIAL IJ (11:51)
[2021-07-01] MEDS: Omnipaque 240 MG/ML 50 ML BTL IJ (11:51)
== END 2021-07-01 10:53 | disposition home or self-care (01) ==
LOC: PC 10:52
PROVIDERS: PCP Internal Medicine; Visit Provider Preventive Medicine Occupational Medicine
DX: M47.817 Spondylosis without myelopathy or radiculopathy, lumbosacral region (principal)
CPT/HCPCS: 64493; 64494; 64495; 72100; J1040; Q9967

== ENCOUNTER 2022-01-15 09:55 | Outpatient (CLI) | payer BC, SELFPAY ==
[2022-01-15 10:01] VITALS: BP 98/66; PULSE 101; RESP 20; TEMP 37; O2SAT 99
--- NOTE | 2022-01-15 10:38 | DI.RAD_ITS ---
Exam(s) XR PAIN CLINIC LUMBAR SP 2V EXAM: XR PAIN CLINIC LUMBAR SP 2V CLINICAL HISTORY: Dx: Lumbar Spondylosis TECHNIQUE: 2D and realtime digital imaging was performed. CONTRAST MATERIAL: Refer to procedure report. COMPARISON: No exams were available for comparison FINDINGS: Fluoroscopy was provided for Dr. Krishna during the performance of a lumbar facet injection. Please re maximino to the procedure report for complete details. Ka,r=4.81 mGy IMPRESSION:
[2022-01-15 10:48] VITALS: BP 100/67; PULSE 93; RESP 14; O2SAT 100
[2022-01-15] MEDS: methylPREDNISolone ACETATE 80 MG/ML VIAL IJ (10:54)
[2022-01-15] MEDS: Omnipaque 240 MG/ML 50 ML BTL IJ (10:54)
[2022-01-15] MEDS: Lidocaine 2% Pres-Free 5 ML VIAL IJ (10:54)
--- NOTE | 2022-01-19 14:08 | PDOC.PAIN_ITS ---
Date of service: 01/15/22 Time of Service: 10:30 Pain Clinic Procedure Note Procedure Note Procedure Note: INTRA-ARTICULAR FACET JOINT INJECTION ADRIENNE CLEARY has been referred to the [facility] for intra- articular lumbar facet joint injection. COMMENTS: She has done exceedingly well with this procedure in the past. This has allowed her to keep working and complete activities at home. Pre-procedure pain VAS = 6/10. Dx: Lumbosacral spondylosis without myelopathy. Patient was interviewed and the medical record reviewed. There were no medical, pharmacologic, radiographic or other structural contraindications to attempting fluoroscopically guided intra-articular lumbar facet joint injection. Risks and expected side effects as well as potential benefit of the procedure were reviewed and voiced concerns addressed. The printed consent form was signed and witnessed. Standard time-out procedure was performed. Patient was placed in the prone position on the fluoroscopy table and automated blood pressure cuff and pulse oximeter applied. The skin entry point for approaching left facet joints at L3-L4, L4-L5 and L5-S1 were identified under the most advantageous fluoroscopic view and marked. Following thorough Chlorhexadine preparation of the skin and draping and 1% lidocaine infiltration of the skin entry point and subcutaneous tissues, a 22 gauge spinal needle was placed under fluoroscopic guidance into left facet joint. Intra-articular placement was confirmed by a clear arthrogram resulting from the injection of 0.25ml Omnipaque 240. .5ml 1% lidocaine and 20mg Depomedrol were injected intra-articularily with an initial reproduction of a significant component of the usual pain. Vital signs were stable throughout the procedure and were as recorded in the docflowsheet by the nursing staff. If given, dosages of intravenous drugs for anxiolysis and analgesia were documented in MAR. Follow up plans and appointments were discussed. Post procedure instruction was given as documented in nursing documentation and having met discharge criteria,was discharged from the [facility] Management Center. COMMENTS: Post-procedure pain VAS was 1/10. Zaire Krishna DO, MPH [facility]-Pain Management [facility]-Center for Pain Management CC: Katherine Castillo
== END 2022-01-15 09:56 | disposition home or self-care (01) ==
LOC: PC 09:55
PROVIDERS: PCP Internal Medicine; Visit Provider Preventive Medicine Occupational Medicine
DX: M47.817 Spondylosis without myelopathy or radiculopathy, lumbosacral region (principal)
CPT/HCPCS: 64493; 64494; 64495; 72100; J1040; Q9967

== ENCOUNTER 2022-06-17 08:23 | Outpatient (CLI) | payer BC, SELFPAY ==
--- NOTE | 2022-06-17 06:00 | DI.RAD_ITS ---
Exam(s) XR PAIN CLINIC LUMBAR SP 2V EXAM: XR PAIN CLINIC LUMBAR SP 2V CLINICAL HISTORY: DX: Lumbar spondylosis TECHNIQUE: 2D and realtime digital imaging was performed. CONTRAST MATERIAL: Refer to procedure report. COMPARISON: No exams were available for comparison FINDINGS: Fluoroscopy was provided for Dr. Krishna during the performance of a lumbar facet injection. Please re maximino to the procedure report for complete details. Ka,r=8.25 mGy IMPRESSION:
[2022-06-17 08:34] VITALS: BP 102/80; PULSE 106; RESP 20; TEMP 36.7; O2SAT 99
--- NOTE | 2022-06-17 09:14 | PDOC.PAIN ---
Date of service: 06/17/22 Time of Service: 09:24 Pain Clinic Procedure Note Procedure Note Procedure Note: INTRA-ARTICULAR FACET JOINT INJECTION ADRIENNE CLEARY has been referred to the [facility] Management Center for intra-articular lumbar facet joint injection. COMMENTS: She had her last left L3-L4, L4-L5 and L5-S1 intra-articular facet joint injections on 01/19/23. She had 80% pain relief up until about 2 weeks ago and >50% improvement in function during that time. She continues to be able to work. She had no side effects from the procedure. Pre-procedure pain VAS = 4-5/10 Dx: Lumbosacral spondylosis without myelopathy Patient was interviewed and the medical record reviewed. There were no medical, pharmacologic, radiographic or other structural contraindications to attempting fluoroscopically guided intra-articular lumbar facet joint injection. Risks and expected side effects as well as potential benefit of the procedure were reviewed and voiced concerns addressed. The printed consent form was signed and witnessed. Standard time-out procedure was performed. Patient was placed in the prone position on the fluoroscopy table and automated blood pressure cuff and pulse oximeter applied. The skin entry point for approaching left facet joints at L3-L4 was identified under the most advantageous fluoroscopic view and marked. Following thorough Chlorhexadine preparation of the skin and draping and 1% lidocaine infiltration of the skin entry point and subcutaneous tissues, a 22 gauge 3.5 spinal needle was placed under fluoroscopic guidance into left L3-L4 facet joint. Intra-articular placement was confirmed by a clear arthrogram resulting from the injection of 0.25ml Omnipaque 240. 1/3 cc of Depomedrol (80mg/cc) was injected intra-articularily with an initial reproduction of a significant component of the usual pain. This was followed with 0.5ml of 1% lidocaine. This was repeated at the left L4-L5 and L5-S1 facet joints and the needles were removed. Vital signs were stable throughout the procedure and were as recorded in the docflowsheet by the nursing staff. If given, dosages of intravenous drugs for anxiolysis and analgesia were documented in MAR. Follow up plans and appointments were discussed. Post procedure instruction was given as documented in nursing documentation and having met discharge criteria,was discharged from the [facility] Management Center. COMMENTS: Post-procedure pain VAS was 0/10. 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 Zaire Krishna DO, MPH [facility]-Pain Management [facility]-Center for Pain Management CC: Katherine Castillo
[2022-06-17] MEDS: methylPREDNISolone ACETATE 80 MG/ML VIAL IJ (09:21)
[2022-06-17] MEDS: Omnipaque 240 MG/ML 50 ML BTL IJ (09:21)
[2022-06-17] MEDS: Lidocaine 2% Pres-Free 5 ML VIAL IJ (09:21)
[2022-06-17 09:22] VITALS: BP 119/79; PULSE 101; RESP 18; O2SAT 100
== END 2022-06-17 08:24 | disposition home or self-care (01) ==
PROVIDERS: PCP Internal Medicine; Visit Provider Preventive Medicine Occupational Medicine
DX: M47.817 Spondylosis without myelopathy or radiculopathy, lumbosacral region (principal)
CPT/HCPCS: 64493; 64494; 64495; 72100; J1040; Q9967

== ENCOUNTER 2022-10-15 10:23 | Outpatient (CLI) | payer BC, SELFPAY ==
[2022-10-15 10:38] VITALS: BP 113/66; PULSE 108; RESP 20; TEMP 37; O2SAT 99
--- NOTE | 2022-10-15 11:19 | DI.RAD_ITS ---
Exam(s) XR PAIN CLINIC LUMBAR SP 2V EXAM: XR PAIN CLINIC LUMBAR SP 2V CLINICAL HISTORY: Dx: Lumbosacral spondylosis without myelopathy TECHNIQUE: 2D and realtime digital imaging was performed. Radiologist not present. CONTRAST MATERIAL: None. COMPARISON: No exams were available for comparison FINDINGS: Fluoroscopy was provided for pain management therapy. Please refer to procedure report or details. Radiation Exposure Index: Ka,r=4.36 mGy IMPRESSION: As above. RADIATION DOSE DELIVERED:
[2022-10-15] MEDS: Omnipaque 240 MG/ML 50 ML BTL IJ (11:21)
[2022-10-15] MEDS: methylPREDNISolone ACETATE 80 MG/ML VIAL IJ (11:21)
[2022-10-15] MEDS: Lidocaine 2% Pres-Free 5 ML VIAL IJ (11:26)
[2022-10-15 11:27] VITALS: BP 104/60; PULSE 82; RESP 12; O2SAT 100
--- NOTE | 2022-10-17 14:19 | PDOC.PAIN_ITS ---
Date of service: 10/15/22 Time of Service: 11:11 Pain Managment Procedure Note Procedure Note Procedure Note: PROCEDURE NOTE Left Lumbar Facet Joint Injections Date of Service: October 15, 2022 Patient: ADRIENNE CLEARY Provider: Zaire Krishna DO, MPH ADRIENNE CLEARY has been referred to the Pain Management Center for lumbar facet joint injections. Pre-operative diagnosis: Lumbar Spondylosis without Myelopathy Post-operative diagnosis: Same Pre-procedure pain: VAS= 6/10 COMMENTS: She had >60% relief for >3 months with her last lumbar facet joint injections. This is allowing her to stay active with her family and continue working. ADRIENNE? was interviewed and the medical records were reviewed. There were no medical, pharmacologic, radiographic or other structural contraindications to attempting fluoroscopically guided local anesthetic lumbar facet joint injections. Risks and potential side effects were discussed. I also discussed the potential benefit(s) of the procedure with ADRIENNE, and voiced concerns were addressed. After ADRIENNE was completely informed about the procedure, the printed consent form was signed. A standard time-out procedure was performed. ADRIENNE was placed in the prone position on the fluoroscopy table. Automated blood pressure cuff and pulse oximeter were applied. The skin entry points for approaching the anatomic target points of the segmental facet joints of the left L3-L4, L4-L5, and L5-S1 facet joints were identified with fluoroscopy and marked. The skin at the target site area was thoroughly prepared with Chlorhexadine. The skin was then draped. Next, a 22 gauge 3.5 spinal needle was placed under fluoroscopic guidance down on to the target point (the facet joint) for each respective joint. Position was confirmed in A/P and lateral views. Aspiration revealed no blood or clear fluid. Next, 0.25ml of omnipaque 240 was injected at each level. No contrast following a vascular or neural pattern was visualized under continuous fluoroscopy. Next, 0.33 ml of preservative-free Depomedrol (80 mg/cc) was injected at each level. This was followed by 1 cc of 2% Lidocaine. There was no unusual discomfort expressed by ADRIENNE. The needles were withdrawn without difficulty. (48 mls of Omnipaque was wasted) ADRIENNE was observed and was without hemodynamic, neurologic, or allergic reactions.? Fluoroscopic images were digitally archived. Any improved physical functioning directly after the injections? Able to move her low back with no pain. Follow up plans and appointments were discussed with ADRIENNE. ADRIENNE was instructed to keep careful note of how the usual pain was modified by these injections. Specifically, to keep a pain diary for the next 4 hours using a numeric pain scale of 0-10 and report these results. Post procedure instruction was given as documented in the nursing documentation and having met discharge criteria, the patient was discharged from the [facility]. We may consider radiofrequency ablation in the future for longer lasting pain control. This would be to the left L2-L5 medial branches. COMMENTS: No apparent complications. Post-procedure pain: VAS= 0/10 ADRIENNE will call back with 0-4 hour post-procedure pain scores. I personally performed the entire procedure. ZAIRE KRISHNA DO, MPH [facility]-subspecialty board certification in Pain Medicine [facility]-Center for Pain Management
== END 2022-10-15 10:24 | disposition home or self-care (01) ==
LOC: PC 10:23
PROVIDERS: PCP Internal Medicine; Visit Provider Preventive Medicine Occupational Medicine
DX: M47.816 Spondylosis without myelopathy or radiculopathy, lumbar region (principal)
CPT/HCPCS: 64493; 64494; 64495; 72100; J1040; Q9967

== ENCOUNTER 2023-01-13 15:05 | Outpatient (CLI) | payer BC, SELFPAY ==
--- NOTE | 2023-01-13 06:00 | DI.RAD_ITS ---
Exam(s) XR PAIN CLINIC LUMBAR SP 2V EXAM: XR PAIN CLINIC LUMBAR SP 2V CLINICAL HISTORY: Dx: Lumbar Spondylosis. TECHNIQUE: Fluoroscopy was provided for the referring physician for guidance with performing pain cl inic injection procedure. COMPARISON: No exams were available for comparison FINDINGS: Please see procedure note for details. Fluoro time: 51 seconds RADIATION DOSE DELIVERED: woo Reddy=5.3 mGy
[2023-01-13 15:23] VITALS: BP 115/68; PULSE 70; RESP 20; TEMP 36.6; O2SAT 98
[2023-01-13] MEDS: fentaNYL 100 MCG/2 ML VIAL IVP ×2 (15:54→16:03)
[2023-01-13] MEDS: Midazolam 2 MG/2 ML VIAL IVP (15:54)
[2023-01-13] MEDS: Lactated Ringers 500 ML 80 ML IV (15:55)
[2023-01-13 16:35] VITALS: BP 105/74; PULSE 60; RESP 61; O2SAT 98
[2023-01-13] MEDS: Lidocaine 2% Pres-Free 5 ML VIAL IJ (16:41)
[2023-01-13] MEDS: methylPREDNISolone ACETATE 40 MG/ML VIAL IJ (16:43)
[2023-01-13] MEDS: Bupivacaine 0.5% Pres-Free 10 ML VIAL IJ (16:44)
--- NOTE | 2023-01-13 16:56 | PDOC.PAIN_ITS ---
Date of service: 01/13/23 Time of Service: 16:56 Pain Managment Procedure Note Procedure Note Procedure Note: PROCEDURE NOTE LEFT LUMBAR RADIOFREQUENCY ABLATION Date of Service: January 13, 2023 Patient:? ADRIENNE CLEARY? Provider:? Zaire Krishna DO, MPH ADRIENNE CLEARY [facility] Lumbar Radiofrequency Ablation with the [employer] Machine.? Pre Operative Diagnosis: Lumbosacral Spondylosis without Myelopathy Post Operative Diagnosis: Same Pre procedure pain; VAS= 8/10 Comments: She has had successful intra-articular left L3-L4, L4-L5 and L5-S1 facet joint injections PROCEDURE: Radiofrequency Ablation of medial branches - Left L2, L3, L4, and L5. ADRIENNE?was interviewed and the medical record was reviewed.? There were no medical, pharmacologic, radiographic or other structural contraindications to attempting fluoroscopically guided LEFT Lumbar Radiofrequency Ablation.?Risks and expected side effects as well as potential benefit of the procedure were reviewed with ADRIENNE, and the patient's voiced concerns were addressed.? The printed consent form was signed.? Standard time-out procedure was performed. ADRIENNE was brought into the fluoroscopy suite and positioned into the prone position on the fluoroscopy table and allowed to adjust to a position of comfort. A grounding pad was placed on the left abdomen. The sterile field was prepared using chlorhexidine preparation of the skin and sterile draping. Local anesthesia superficial and deep was provided by local infiltration of 2% lidocaine. A 17g 75 mm radiofrequency introducer needle was placed to the planned anatomic targets guided with intermittent fluoroscopy with a perpendicular approach to terminally place at the junction of the superior articular process and the transverse process of the left L3, L4, L5, the base of the sacral ala on the left for the L5 medial branch nerve and the area between base of the sacral ala to the S1 foramen on the left. The stylets were removed and radiofrequency probes with a 4mm active tip were then inserted. Needle tip position of the probes was verified in the AP, oblique, and lateral views. At each site, the medial branch nerve was stimulated at 2 Hz to a maximum 1-2 volts determined to finalize safe needle and electrode placement. The patient was awake and respons latoya during this portion of the procedure. Each target was anesthetized with 1-2 mL of 2 % Lidocaine for anesthesia for lesioning and then each target was lesioned at 80 degrees Celsius for 2 minutes and 30 seconds. Tissue impedances were noted to be between 250 and 500 Ohms. There was no unusual discomfort expressed by ADRIENNE. The needles were withdrawn without difficulty and bandages placed over the needle placement sites, the patient was observed and was without hemodynamic, neurologic, or allergic reactions. Fluoroscopic images were digitally archived. POST PROCEDURE EVALUATION: IMPRESSION: 1. Summary of procedure. Medication given is documented in the MAR. 2. Follow up plan: ADRIENNE to contact [facility] needed.?This procedure may be repeated if the patient achieves at least 50% improvement in pain/function for at least 6 months. 3. Estimated Blood Loss: <5 mls 4. Fluoroscopy time: Documented in the EMR. Follow up plans and appointments were discussed with the ADRIENNE. Post procedure instruction was given as documented in nursing documentation and having met discharge criteria, ADRIENNE was [facility] from the [facility]. COMMENTS: No apparent complications. Post-procedure pain: VAS= 2/10. I personally completed the entire procedure. ZAIRE KRISHNA DO, MPH ABPM&R - Subspecialty board certification in Pain Medicine [facility]
== END 2023-01-13 15:06 | disposition home or self-care (01) ==
LOC: PC 15:05
PROVIDERS: PCP Internal Medicine; Visit Provider Preventive Medicine Occupational Medicine
DX: M47.817 Spondylosis without myelopathy or radiculopathy, lumbosacral region (principal)
CPT/HCPCS: 00123; 64635; 64636; 72100; J1030; J2250; J3010

== ENCOUNTER 2024-05-18 13:41 | Outpatient (CLI) | payer BC, SELFPAY ==
[2024-05-18] VITALS (8 sets, daily range): BP systolic 108–115; BP diastolic 68–83; PULSE 68–88; RESP 10–20; TEMP 36.7; O2SAT 98–100
--- NOTE | 2024-05-18 06:00 | DI.RAD_ITS ---
Exam(s) XR PAIN CLINIC LUMBAR SP 2V EXAM: XR PAIN CLINIC LUMBAR SP 2V CLINICAL HISTORY: DX: Lumbar Spondylosis. TECHNIQUE: Fluoroscopy was provided for the referring physician for guidance with performing pain cl inic injection procedure. COMPARISON: No exams were available for comparison FINDINGS: Please see procedure note for details. Fluoro time: 48.3 seconds RADIATION DOSE DELIVERED: Maureenr=7.67 mGy
[2024-05-18] MEDS: fentaNYL 100 MCG/2 ML VIAL IVP ×3 (15:05→15:25)
[2024-05-18] MEDS: Midazolam 2 MG/2 ML VIAL IVP (15:05)
--- NOTE | 2024-05-18 15:43 | PDOC.PAIN_ITS ---
Date of service: 05/18/24 Time of Service: 15:43 Pain Managment Procedure Note Procedure Note Procedure Note: PROCEDURE NOTE LEFT LUMBAR RADIOFREQUENCY ABLATION Date of Service: May 18, 2024 Patient:? ADRIENNE CLEARY? Provider:? Zaire Krishna DO, MPH ADRIENNE CLEARY has [facility] Left Lumbar Radiofrequency Ablation with the [employer] Machine.? Pre Operative Diagnosis: Lumbosacral Spondylosis without Myelopathy ICD-10 M47.816 Post Operative Diagnosis: Same Pre procedure pain; VAS= 7/10 Comments: She had >6 months of >50% pain relief with her last RFA. This allowed her to continue working. PROCEDURE: Radiofrequency Ablation of medial branches - left L3, L4, L5 and lateral branch left S1. ADRIENNE?was interviewed and the medical record was reviewed.? There were no medical, pharmacologic, radiographic or other structural contraindications to attempting fluoroscopically guided LEFT Lumbar Radiofrequency Ablation.?Risks and expected side effects as well as potential benefit of the procedure were reviewed with ADRIENNE, and the patient's voiced concerns were addressed.? The printed consent form was signed.? Standard time-out procedure was performed. ADRIENNE was brought into the fluoroscopy suite and positioned into the prone position on the fluoroscopy table and allowed to adjust to a position of comfort. A grounding pad was placed on the left abdomen. The sterile field was prepared using chlorhexidine preparation of the skin and sterile draping. Local anesthesia superficial and deep was provided by local infiltration of 2% lidocaine. A 17g 75 mm radiofrequency introducer needle was placed to the planned anatomic targets guided with intermittent fluoroscopy with a perpendicular approach to terminally place at the junction of the superior articular process and the transverse process of the left L4, L5, the base of the sacral ala on the left for the L5 medial branch nerve and the area between base of the sacral ala to the S1 foramen on the left. The stylets were removed and radiofrequency probes with a 4mm active tip were then inserted. Needle tip position of the probes was verified in the AP, oblique, and lateral views. At each site, the medial branch nerve was stimulated at 2 Hz to a maximum 1-2 volts determined to finalize safe needle and electrode placement. The patient was awake and responsive during this portion of the procedure. Each target was anesthetized with 1-2 mL of 2 % Lidocaine for anesthesia for lesioning and then each target was lesioned at 80 degrees Celsius for 2 minutes and 30 seconds. Tissue impedances were noted to be between 250 and 500 Ohms. I then injected 1/4 cc of Depomedrol (40 mg/cc) followed by 1 cc of 0.5% Bupivacaine at each medial branch. There was no unusual discomfort expressed by ADRIENNE. The needles were withdrawn without difficulty and bandages placed over the needle placement sites, the patient was observed and was without hemodynamic, neurologic, or allergic reactions. Fluoroscopic images were digitally archived. POST PROCEDURE EVALUATION: IMPRESSION: 1. Summary of procedure. Medication given is documented in the MAR. 2. Follow up plan: ADRIENNE to contact [facility] needed.?This procedure may be repeated if the patient achieves at least 50% improvement in pain/function for at least 6 months. 3. Estimated Blood Loss: <5 mls 4. Fluoroscopy time: Documented in the EMR. Follow up plans and appointments were discussed with the ADRIENNE. Post procedure instruction was given as documented in nursing documentation and having met discharge criteria, ADRIENNE was discharged from the [facility]. This advanced procedure uses cooled radiofrequency energy to safely target the sensory nerves responsible for sending pain signals.1 A radiofrequency generator transmits a small current of Radiofrequency energy through an insulated electrode, or probe, placed within tissue. Ionic heating, produced by the friction of charged molecules, thermally deactivates the nerves responsible for sending pain signals to the brain. Radiofrequency energy heats and cools the tissue at the site of pain. Unlike other Radiofrequency procedures, Coolief circulates water through the device while heating nervous tissue to create a larger treatment area, increasing the opportunity to help with pain. This combination targets the pain- transmitting nerves without excessive heating, leading to pain relief. COMMENTS: No apparent complications. Post-procedure pain: VAS= 3/10. I personally completed the entire procedure. ZAIRE KRISHNA DO, MPH ABPM&R - Subspecialty board certification in Pain Medicine [facility] Coding Conscious Sedation used for procedure: Yes CPT Codes: Single Facet Joint, Lumbar/Sacral cool - 38302I ([id number]~G) Single Facet Joint, Lumbar/Sacral cool each add'l - 87467I ([id number]~G) Single Facet Joint, Standard each add'l - 39692 ([id number]~G) MOD SED SAME PHYS/QHP 5/>YRS - 61564 (47371) MOD SED SAME PHYS/QHP EA - 84251 (10454) 2 units total MOD SED SAME PHYS/QHP EA - 03786 (39097) Additional Codes: Date of Service (10379) Date of service: 05/18/24
[2024-05-18] MEDS: Lidocaine 2% Multi-Dose 20 ML VIAL IJ (15:44)
[2024-05-18] MEDS: methylPREDNISolone ACETATE 40 MG/ML VIAL IJ (15:45)
[2024-05-18] MEDS: Bupivacaine 0.5% Pres-Free 10 ML VIAL IJ (15:45)
[2024-05-18] MEDS: Nerve Block Tray 1 EACH MC (15:45)
[2024-05-18] MEDS: Lactated Ringers 500 ML 80 ML IV (15:48)
== END 2024-05-18 13:42 | disposition home or self-care (01) ==
LOC: PC 13:41
PROVIDERS: PCP Internal Medicine; Visit Provider Preventive Medicine Occupational Medicine
DX: M47.816 Spondylosis without myelopathy or radiculopathy, lumbar region (principal)
CPT/HCPCS: 64635; 64636; 64640; 72100; 99153; J0665; J1010; J2003; J2250; J3010